=== PATIENT | female | born 2000 | race Caucasian/White ===

== ENCOUNTER 2019-04-15 08:09 | Day surgery (SDC) | payer OTHER, SELFPAY ==
[2019-03-30 15:31] VITALS: BMI 45.6
[2019-04-15 08:41] VITALS: BP 129/74; PULSE 81; RESP 16; TEMP 36.7; O2SAT 100; BMI 46.0
[2019-04-15 08:43] LABS: Internal QC Validated? YES +Cl - CLEAR BKGD; Pregnancy, Urine Negative Negative
--- NOTE | 2019-04-15 09:30 | TONS_PTH ---
PATIENT: ANNA GALE [place]: [facility] [place][id number] AGE/SX: 18/F ROOM: RE04/15/[address]: Dr. Loco Hensley MD : 2000 BED: DIS: 04/15/2019 SPEC #: [id number] RECD: 04/15/19 13:12 STATUS: ALEXAJanelle RICHARDSON #: [id number] HEMA: 04/15/19 09:[address]: Loco Hensley DEPT: SURGICAL PATHOLOGY RECD BY: Micheal Gómez ENTERED: 04/15/19 14:16 SP TYPE: TONSILS OTHR DR: No Primary Care Phys Tissues: A - Tonsil, NOS B - Tonsil, NOS Procedures: Surgery Specimen Level III HEADER OPERATION: Tonsillectomy PRE-OP DIAGNOSIS: Chronic tonsillitis TISSUE SUBMITTED: A - Right tonsil, B - Left tonsil MICROSCOPIC DIAGNOSIS A. Right tonsil, tonsillectomy: Benign lymphoid hyperplasia. Organisms consistent with actinomyces. B. Left tonsil, tonsillectomy: Benign lymphoid hyperplasia. Organisms consistent with actinomyces. AM:adri 04/18/19 MICROSCOPIC DESCRIPTION Slides are reviewed. GROSS DESCRIPTION A - Received in formalin labeled with the patient's name and designated right tonsil. The specimen consists of a tonsil that weighs 5.6 gm and measures 3 x 2 x 1.5 cm. The external surface is pink-bojorquez, smooth, glistening and somewhat lobulated. Focally it is hemorrhagic, granular and bears cautery artifact. Serial cross sections through the tonsil reveal normal tonsillar architecture. Sheet Turner sections are submitted in one cassette. B - Received in formalin labeled with the patient's name and designated left tonsil. The specimen consists of a tonsil that weighs 5.8n gm and measures 3.1 x 1.6 x 1.5 cm. The external surface is pink-bojorquez, smooth, glistening and somewhat lobulated. Focally it is hemorrhagic, granular and bears cautery artifact. Serial cross sections through the tonsil reveal normal tonsillar architecture. Sheet Turner sections are submitted in one cassette. / AM:adri 04/15/19 TC:5 CPT: 21788 x2
[2019-04-15 10:23] VITALS: BP 129/74; BP 139/86; PULSE 94; RESP 16; TEMP 36.4; O2SAT 97
--- NOTE | 2019-04-15 10:24 | OP.PCM_ITS ---
Problem List (1) Chronic tonsillitis Status: Chronic Report of Operation Date of Procedure: 04/15/19 Pre-Operative Diagnosis: Chronic tonsillitis Post-Operative Diagnosis: Same Surgery/Procedure Performed:: Tonsillectomy Description of Surgical Findings:: There is a 18-year-old female who presents valuation recurrent and chronic sore throats. Examination showed cryptic tonsillar hypertrophy. The above procedure was offered in hopes of relief. The risks, alternatives, potential complications, and benefits were discussed at length and any questions answered to the patient and/or caregiver's satisfaction. Witnessed informed consent was obtained in the office, and the patient and/or caregiver was agreeable to proceed. Procedure went as follows: The patient was identified in the preoperative holding, brought to the operating room, was placed under general anesthesia and intubated. When appropriate anesthesia was obtained, the head of bed was rotated and the patient prepped and draped in usual sterile fashion. A Joy Chinmay mouthgag was then placed and the patient suspended from the [place] stand. The oral cavity was examined and noted to have 3+ cryptic tonsillar hypertrophy. Beginning on the right side, the right tonsil was then grasped with a curved tenaculum and dissected from the underlying capsule with monopolar cautery. This was then sent as specimen. Similar procedure was then completed on the contralateral side. The oral and nasal cavities were then irrigated with saline solution. An NG tube was then placed to decompress the stomach. The patient wa s then returned to anesthesia, revived and extubated having tolerated the procedure well. Type of Anesthesia:: General Anesthesiologist: Sanjay Osuna Special Medications: none Specimen's removed: bilateral tonsils Drains: none Estimated Blood Loss (mL): 10 mL Fluids Replaced: 400 mL Grafts/Implants Used: none - Complications none - Admit VTE Documentation VTE Present on Admission: No VTE Mechan Device Prophylaxis: SCD's VTE Pharm Prophylaxis ordered?: No
[2019-04-15 10:30] VITALS: BP 129/74; BP 137/85; PULSE 75; RESP 16; O2SAT 97
--- NOTE | 2019-04-15 10:32 | PCM.DC.T&A ---
Discharge Diet: No Restrictions Discharge Activity: Return to Normal Activity Call your doctor if your incision/area has: Sudden Increased Bleeding Call your doctor if you observe: Fever of 101 or Higher, Uncontrolled pain Allergies/Adverse Reactions: Allergies Penicillins Allergy (Unknown, Verified 04/08/19 14:59) other Medications to take at Discharge Famotidine [Pepcid AC] 20 mg PO DAILY 04/08/19 Primary Care Physician: Care Physician,No Primary [Primary Care Provider] - Test Results: Test results from this visit will be discussed in further detail at your follow-up appointment, if applicable. Please Follow Up With: Loco Hensley MD When: 2 weeks
[2019-04-15] MEDS: Lactated Ringers 1,000 ML 120 ML IV (10:40)
[2019-04-15 10:45] VITALS: BP 129/74; BP 135/86; PULSE 88; RESP 16; O2SAT 10
[2019-04-15 11:00] VITALS: BP 129/74; BP 139/96; PULSE 76; RESP 16; TEMP 36.2; O2SAT 99
[2019-04-15] MEDS: Acetaminophen 160 MG/5 ML UDC 500 MG PO (11:15)
[2019-04-15 14:50] VITALS: BP 129/74; BP 151/80; PULSE 104; RESP 16; TEMP 36.8; O2SAT 98
[2019-04-15] MEDS: Ibuprofen 100 MG/5 ML UDC 500 MG PO (15:08)
== END 2019-04-15 15:15 | disposition home or self-care (01) ==
LOC: SDC 08:14 → AC 08:15
PROVIDERS: Anesthesiology; Referring Provider Otolaryngology; Visit Provider Otolaryngology
PROC: (CPT 42826; principal; 2019-04-15 09:15)
DX: J35.01 Chronic tonsillitis (principal); K21.9 Gastro-esophageal reflux disease without esophagitis; F17.200 Nicotine dependence, unspecified, uncomplicated; Z79.899 Other long term (current) drug therapy
CPT/HCPCS: 00170; 42826; 81025; 88304; J7120; J2405